=== PATIENT | male | born 1970 | race Caucasian/White ===

== ENCOUNTER → 2021-06-19 | Outpatient (CLI) | payer OTHER | END | disposition home or self-care (01) | LOC: LAB 11:35 | PROVIDERS: ATTEND Internal Medicine Gastroenterology | DX: K21.9 Gastro-esophageal reflux disease without esophagitis (principal); R13.14 Dysphagia, pharyngoesophageal phase; K22.10 Ulcer of esophagus without bleeding; R14.0 Abdominal distension (gaseous) | CPT/HCPCS: 74018 ==